=== PATIENT | female | born 1940 | race Caucasian/White ===

== ENCOUNTER → 2024-02-15 13:42 | Outpatient (CLI) | payer MEDICARE, OTHER, SELFPAY ==
--- NOTE | 2024-02-15 13:50 | DI.RAD.S_ITS ---
PROCEDURE: XR FOOT LT MIN 3V INDICATIONS: Bunion of left foot TECHNIQUE: 3 views of the foot were acquired. COMPARISON: [facility], CR, XR FOOT 3+ VIEWS LEFT, 12/13/2022, 15:20. FINDINGS: Bones: Hallux valgus deformity with bunion formation. [id number] degenerative changes. No significant interval change. No fractures or dislocations. No suspicious bony lesions. Soft tissues: No tibiotalar joint effusion. Achilles tendon appears normal. IMPRESSION: Hallux valgus deformity with bunion formation. Dictated by: Jonnie Miranda M.D. on 02/15/2024 at 20:47 Approved by: Jonnie Miranda M.D. on 02/15/2024 at 20:56
== END ==
PROVIDERS: PCP Family Medicine; Referring Provider Podiatrist Foot & Ankle Surgery; Visit Provider Podiatrist Foot & Ankle Surgery
DX: M20.12 Hallux valgus (acquired), left foot (principal); M21.612 Bunion of left foot
CPT/HCPCS: 73630

== ENCOUNTER 2024-08-19 09:31 | Day surgery (SDC) | payer MEDICARE, OTHER, SELFPAY ==
[2024-08-19] VITALS (8 sets, daily range): BP systolic 127–161; BP diastolic 55–71; PULSE 62–88; RESP 9–18; TEMP 36.3–37.1; O2SAT 93–100; BMI 21.2
--- NOTE | 2024-08-19 07:40 | PM.PREOP ---
Pre-operative Note Interval Note History & Physical reviewed/Exam performed by Physician: Yes Changes to H&P: No
--- NOTE | 2024-08-19 07:41 | P.HP_ITS ---
History of Present Illness History of Present Illness Chief complaint: Left foot Narrative: 83 year old female here for left foot pain. Patient reports recurrence after failed bunion surgery on left foot many years ago. Patient has been putting off revision procedure, however, pain is not unbearable with ambulation. Pain has continued to progress with enlargement of bony protrusions. Patient denies n/v/f/c/sob/cp. [facility] Medical History (Updated 08/15/24 @ 07:31 by Sandhya Shipley RN) Hypothyroid Cellulitis Surgical History (Updated 08/15/24 @ 07:35 by Sandhya Shipley RN) History of bunionectomy Social History household members: none Smoking Status: Former smoker alcohol intake: current Meds Home Medications and Allergies Home Medications Medication Instructions Recorded Confirmed Type levothyroxine 100 mcg tablet 100 mcg PO DAILY 08/15/24 08/15/24 History pravastatin 20 mg tablet 20 mg PO DAILY 08/15/24 08/15/24 History Allergies Allergy/AdvReac Type Severity Reaction Status Date / Time penicillin G Allergy Severe Anaphylaxis Verified 08/15/24 07:32 Sulfa (Sulfonamide Allergy Severe Anaphylaxis Verified 08/15/24 07:32 Antibiotics) Exam Neuro Other: Neurovascular intact to b/l feet. Extrem Other: Left foot: hallux abducto valgus with toe 1 overlapping toe 2, enlarged bony eminence to lateral and plantar toe 1 IPJ and medial toe 2 PIPJ, and hammertoe 2. Assessment & Plan Assessment & Plan narrative: 1. Left foot bunion 2. Left foot second digit hammertoe 3. Left foot osteophyte hallux interphalangeal joint Patient seen and evaluated. Surgical plan: left foot bunionectomy with Jocelyn and/or Patricio and EHL lengthening, hallux interphalangeal joint ostectomy, and secind digit hammertoe correction. Risks and benefits of the procedure discussed with all questions answered to patient's satisfaction. Reviewed potential complications that may include but not limited to the following: DVT, failure to resolve all symptoms, infection, nerve injury, bleeding, recurrence, or wound. Reviewed surgical technique and general aftercare protocols. All questions answered to patient's satisfaction with no guarantees made. Patient verbalized understanding and agreed with surgical plan. RTC for post-op. Time-Based Coding :: [TOTAL MINUTES] spent with patient and on the chart (including review of chart, obtaining history, exam, reviewing outside data, placing orders, documenting exam and treatment plan, and counseling patient) on [DATE].
[2024-08-19] MEDS: LACTATED RINGERS 1,000 ML 100 ML IV (10:11)
--- NOTE | 2024-08-19 14:03 | SUR.OPER ---
Supine on padded OR bed, head on pillow, arms secured on padded arm boards at <90 degrees abduction, legs uncrossed, safety belt at thigh, tape over blanket over lower legs.
[2024-08-19] MEDS: CLINDAMYCIN 900 MG/50 ML PIGGYBACK 50 MG IV (14:18)
[2024-08-19] MEDS: BUPIVACAINE 0.5% (PF) 10 ML VIAL INJ (14:28)
--- NOTE | 2024-08-19 14:44 | SUR.OPER ---
Supine on padded OR bed, head on pillow, arms secured on padded arm boards at <90 degrees abduction, legs uncrossed, safety belt at thigh, tape over blanket over left leg, tape over scd over right leg.
[2024-08-19] MEDS: SODIUM CHLORIDE 0.9% 500 ML 21 ML IV (15:09)
--- NOTE | 2024-08-19 16:52 | SUR.OPER ---
SECOND INCISION TIME: 16:51
[2024-08-19] MEDS: BUPIVACAINE LIPOSOME 266 MG/20 ML VIAL INJ (17:47)
[2024-08-19] MEDS: ACETAMINOPHEN 325 MG TABLET 975 MG PO (18:21)
[2024-08-19] MEDS: SCOPOLAMINE 1 PATCH TOP (18:53)
--- NOTE | 2024-08-27 21:03 | P.OP_ITS ---
Operative Date/Time/Diagnoses Date of procedure: 08/19/24 Pre-op diagnosis: 1. Left foot bunion 2. Left hallux interphalangeal joint spur 3. Left second digit hammertoe Post-op diagnosis: same Procedure & Clinicians Procedure: 1. Left bunion correction with Jocelyn, Particio, and EHL lengthening 2. Left hallux interphalangeal joint ostectomy 3. Left second digit hammertoe correction Same procedure as scheduled: Yes Indications: Painful deformities with recurrent wounds between left first and second toes. Surgeon: Zay Logan Click Yes if Unassisted: Yes Anesthesia Type: General Operative Notes Findings: Consistent with diagnosis. Closure Type: primary Specimen(s): none sent Estimated Blood Loss (mL): 45 Tourniquet time (min): 145 Procedure in detail: Patient was identified and transferred onto operating table from [facility] in supine position. General anesthesia was administered, followed by local injection with 0.25% marcaine plain. A tourniquet was applied to left ankle over well-padded surface. Left foot was then prepped and draped in the usual sterile fashion, followed by official timeout with surgical team all in agreement. The left foot was then exsanguinated, and the tourniquet was inflated to 225 mmHg. Attention was directed to the bunion deformity on the left foot. A dorsal medial incision was created over the first metatarsophalangeal joint using a # 15 scalpel. The incision was then deepened, and care was taken to protect neurovascular structures. Dissection was deepened to the joint, and an inverted L incision was created over the first metatarsophalangeal joint. The periosteum and capsule were then reflected off of the first metatarsal. There was noted to be a prominent and degenerative changes to and around medial eminence. Decision was made to perform lateral release with transaction of associated structures. A sagittal was then used to create a long dorsal arm for the head osteotomy. The capital fragment was then translocated laterally until correction of the intermetatarsal angle was noted. Following manufacture technique, two 2.5 mm headless and partially-threaded screws were inserted over cannulated K-wires. Adequate fixation was noted at the osteotomy site, with bone allograft to enhance healing. Attention was then directed to the proximal phalanx of the hallux. The capsular periosteum was reflected off of the base of the proximal phalanx. A sagittal was then used to create a closing medial base wedge, which was fixated with a nitinol staple. Finally, a Z tendon lengthening was performed for the extensor hallucis longus. Attention was then directed to left hallux interphalangeal joint spur. A curvilinear extension was made to original linear incision using a # 15 scalpel, and dissection was deepened until palpable bony eminence is appreciated. Decision was made to resect osteophyte with a sagittal saw and rasp on power until satisfaction was attained. Associated callus on the lateral hallux was pared down using a # 15 scalpel to exposure of partial-thickness wound. Attention was directed to left second toe. A linear incisions was made over each interphalangeal joint using # 15 scalpel, and dissection was carried out in layers from skin down to the joint. Care was taken to protect the extensor tendon and neurovasular structures. A sagittal saw was used to resect cartilage down to subchondral bone on all respective surfaces. Following manufacture instructions for the implant as well as using K-wire, the left second toe was held in rectus position. Decision was made to leave the K-wire for enhanced stability, and a cap was placed over the cut wire at the tip of the toe. Associated callus on the medial second toe was pared down to exposure of partial thickness wound. Procedure sites were irrigated with copious saline, then deep structures were reapproximated and closed in layers using 2-0 vicryl, 3-0 vicryl, 3-0 vicryl, 3- 0 nylon, and 4-0 nylon. Tourniquet was released, and adequate capillary fill time was noted to all toes. Left foot was then cleaned and dried. Iodine soaked Adaptic was applied to incision lines, and they were covered with bulky sterile dressings. Patient tolerated procedure without complication and was transferred to post- anesthesia care unti with all vital signs stable. Post-operative Condition: stable Disposition: same day surgery Plan for aftercare: Non-weight bearing and elevating the surgical limb with intermittent icing behind knee.
== END 2024-08-19 19:03 | disposition home or self-care (01) ==
PROVIDERS: PCP Family Medicine; Referring Provider Podiatrist Foot & Ankle Surgery; Visit Provider Podiatrist Foot & Ankle Surgery
PROC: 0QBP0ZZ Excision of Left Metatarsal, Open Approach (ICD-10-PCS; CPT 28292; principal; 2024-08-19 11:30)
DX: M20.42 Other hammer toe(s) (acquired), left foot (principal); M20.12 Hallux valgus (acquired), left foot; M25.775 Osteophyte, left foot
CPT/HCPCS: 28299; 28285; C1713; C9290; J1100; J1171; J2405; J2704; J3010

== ENCOUNTER → 2024-09-05 12:24 | Outpatient (CLI) | payer MEDICARE, OTHER, SELFPAY ==
--- NOTE | 2024-09-05 12:28 | DI.RAD.S_ITS ---
PROCEDURE: XR FOOT LT MIN 3V INDICATIONS: FOOT PAIN TECHNIQUE: 3 views of the foot were acquired. COMPARISON: [facility], [place], XR FOOT LT MIN 3V, 02/15/2024, 13:57. FINDINGS: Bones: Distal 1st metatarsal osteotomy is solidly unified transfixed by 2 screws. There has also been shaving of the medial 1st metatarsal head. There is also a osteotomy of the 1st proximal phalangeal base transfixed by medial plate and screws. Surgery appears to have successfully corrected a hallux valgus deformity. A arthrodesis across the 2nd PIP and DIP joint is transfixed by single pin and demonstrates anatomic alignment. No evidence of osseous bridging across the joints. Joints: The joint spaces are normal in width and alignment without arthritic change. Soft tissues: Moderate forefoot soft tissue swelling noted IMPRESSION: Postsurgical changes that as described. Moderate forefoot soft tissue swelling likely edema Dictated by: Goyo Ward M.D. on 09/06/2024 at 7:31 Approved by: Goyo Ward M.D. on 09/06/2024 at 7:33
== END ==
LOC: RAD 12:26
PROVIDERS: PCP Family Medicine; Referring Provider Podiatrist Foot & Ankle Surgery; Visit Provider Podiatrist Foot & Ankle Surgery
DX: M20.5X2 Other deformities of toe(s) (acquired), left foot (principal); M79.675 Pain in left toe(s)
CPT/HCPCS: 73630

== ENCOUNTER → 2024-09-24 17:02 | Outpatient (CLI) | payer MEDICARE, OTHER, SELFPAY ==
--- NOTE | 2024-09-24 17:04 | DI.RAD.S_ITS ---
PROCEDURE: XR FOOT LT MIN 3V INDICATIONS: XRAY TECHNIQUE: 3 views of the foot were acquired. COMPARISON: [facility], CR, XR FOOT LT MIN 3V, 09/05/2024, 12:26. [facility], CR, XR FOOT LT MIN 3V, 02/15/2024, 13:57. FINDINGS: Bones: 1st metatarsal and 1st proximal phalanx osteotomy, with osseous fusion and no hardware complication. Arthrodesis of the 2nd proximal interphalangeal joint, without hardware complication. Interval removal of the external pinning. Soft tissues: No tibiotalar joint effusion. Achilles tendon appears normal. IMPRESSION: Arthrodesis of the 2nd proximal interphalangeal joint, without hardware complication. First ray osteotomy, with interval bone fusion of the 1st proximal phalanx. Dictated by: Galileo Jameson M.D. on 09/25/2024 at 9:04 Approved by: Galileo Jameson M.D. on 09/25/2024 at 9:05
== END ==
PROVIDERS: PCP Family Medicine; Referring Provider Podiatrist Foot & Ankle Surgery; Visit Provider Podiatrist Foot & Ankle Surgery
DX: Z47.89 Encounter for other orthopedic aftercare (principal)
CPT/HCPCS: 73630